=== PATIENT | female | born 1960 | race Caucasian/White ===

== ENCOUNTER → 2024-06-20 08:08 | Outpatient (REF) | payer MEDICARE, OTHER, SELFPAY | LOC: HWWDC 08:08 | PROVIDERS: ATTENDING PHYSICIAN Obstetrics & Gynecology Gynecology; FAMILY PHYSICIAN Family Medicine; REFERRING PHYSICIAN Physical Medicine & Rehabilitation | DX: Z12.31 Encounter for screening mammogram for malignant neoplasm of breast (principal) | CPT/HCPCS: 77063; 77067 ==

== ENCOUNTER → 2024-08-04 08:22 | Outpatient (REF) | payer MEDICARE, OTHER, SELFPAY | LOC: RAD 08:22 | PROVIDERS: ATTENDING PHYSICIAN Family Medicine | DX: M81.0 Age-related osteoporosis without current pathological fracture (principal) | CPT/HCPCS: 77080 ==